=== PATIENT | male | born 1960 | race Caucasian/White ===

== ENCOUNTER 2022-06-06 12:36 | Emergency (ER) | payer BC ==
[~2022-06-06] VITALS: Ht 180.3 cm; Wt 104.0 kg
[2022-06-06 12:52] VITALS: BP 155/93
[2022-06-06] MEDS ORDERED: sulfamethoxazole/trimethoprim DS (800/160mg) tablet PO ONE (14:40)
[2022-06-06] MEDS ORDERED: cephalexin 500mg capsule PO ONE (14:40)
[2022-06-06] MEDS ORDERED: LIDOcaine 1% W/epiNEPHrine 1:100,000 20ml vial SQ ONE (14:40)
[2022-06-06] MEDS ORDERED: LIDOCAINE 2%/EPI 1:100,000 inj. Multi-dose 20 ML VIAL SQ ONE (14:45)
[2022-06-06] MEDS ORDERED: SULF1TAB49 PO (15:27)
[2022-06-06] MEDS ORDERED: CEPH500C82 PO (15:27)
== END 2022-06-06 16:01 | disposition home or self-care (01) ==
LOC: ER 12:37
DX: L02.212 Cutaneous abscess of back [any part, except buttock and flank] (principal); Z88.6 Allergy status to analgesic agent; Z88.5 Allergy status to narcotic agent; Z79.899 Other long term (current) drug therapy; Z79.1 Long term (current) use of non-steroidal anti-inflammatories (NSAID)
CPT/HCPCS: 10060; 99283; A6266; A6449